=== PATIENT | male | born 1980 | race Caucasian/White ===

== ENCOUNTER 2022-04-02 21:18 | Day surgery (SDC) | payer OTHER, SELFPAY ==
[2022-04-02 21:20] VITALS: BP 135/85; PULSE 70; RESP 18; TEMP 36.6; O2SAT 98; BMI 23.7
--- NOTE | 2022-04-02 21:43 | PC.NURSE ---
spoke with regarding food bolus. requested surgery team be notified. HOuse contacted.
--- NOTE | 2022-04-02 21:47 | PC.NURSE ---
Surgery team called in at request. Call back from Radha at [phone] Call back from Mick at [phone]
--- NOTE | 2022-04-02 21:49 | ED_ITS ---
Discharge Plan Disposition Patient Disposition: Still a Patient Condition: Good Chief Complaint: Skin/Abscess/Foreign Body Referrals Follow up/Referrals: Provider,Referral, MD [Primary Care Provider] - See instructions Clinical Impressions Clinical Impression: Acute esophageal obstruction Instructions Patient Instructions: DI for Skin Abscess Discharge ED Provider: Ranjan Roy General Adult HPI General Chief complaint: Skin/Abscess/Foreign Body Stated complaint: f/b lodged in throat Time Seen by Provider: 04/02/22 21:35 Mode of Arrival: Ambulatory Source of Information: Patient Limitations: No Limitations Description of Symptoms (Recalled from ER Triage Doc. by RN): Pt states he was eating steak at 1200 today and a piece got lodged and he is unable to drink water. History of Present Illness HPI narrative: 41yo M presents to the emergency department secondary to lodged food bolus. He was eating steak at noon when he felt his food become stuck in his throat. No previous episode similar. Does not smoke. Intolerant to p.o. liquids. PFSH PFSH Social History Smoking Status: Never smoker alcohol intake: never current occupational status: employed Travel in the last 8 weeks: None ROS Obtained: Yes Systems reviewed as appropriate & no additional complaints exc ept as documented 10 point ROS negative except as above Physical Exam General General appearance: alert and in no apparent distress Head Head exam: atraumatic Eye Eye exam: Present normal appearance Neck Neck exam: Present normal inspection, full ROM and trachea midline Chest Chest inspection: Present normal inspection and symmetric chest wall rise Respiratory Respiratory exam: Present normal lung sounds bilaterally and respiratory distress Cardiovascular Cardiovascular exam: Present regular rate and normal rhythm Abdominal Exam Abdominal exam: Present soft; Absent distention, tenderness or guarding Extremities Exam Extremities exam: Present normal inspection Neurological Exam Neurological exam: Present alert, oriented X3 and CN II-XII intact Psychiatric Psychiatric exam: Present normal affect Skin Skin exam: Present warm, dry and intact Medical Decision Making Ryan Inquiry Pt receiving controlled substance: No Vital Signs: 04/02/22 21:20 Temperature 98 F Temperature Source Oral Pulse Rate [Apical] 70 Respiratory Rate 18 Blood Pressure [Right Arm] 135/85 Blood Pressure Mean [Right Arm] 101 Blood Pressure Source [Right Arm] Automatic Cuff Blood Pressure Position [Right Arm] Sitting 02 Sat by Pulse Oximetry 98 Oxygen Delivery Method Room Air Medical Decision Narrative: Evaluated for lodged food bolus. Patient is in no acute distress. Discomfort with attempting to drink water. Surgeon on-call paged and agrees to proceed to the OR for EGD Critical Care Time Critical Care Time Critical Care Time: Yes Total Critical Care Time: 35 Attestation: On 04/02/22, the high probability of a clinically significant, sudden or life threatening deterioration of the following system(s) required my full and direct attention, intervention and personal management. The time I documented below is in addition to time spent performing reported procedures but includes the following listed in this critical care notation.
--- NOTE | 2022-04-02 22:02 | PC.NURSE ---
Dr. Sibley at BS
[2022-04-02 22:39] VITALS: BP 142/78; PULSE 88; RESP 18; TEMP 36.6; O2SAT 99
[2022-04-02 22:50] VITALS: BP 120/56; PULSE 71; RESP 16; TEMP 36.6; O2SAT 99
--- NOTE | 2022-04-02 22:51 | P.PN_ITS ---
[facility] Social History (Updated 04/02/22 @ 21:54 by Ranjan Roy DO) Smoking Status: Never smoker alcohol intake: never substance use type: denies use current occupational status: employed Travel in the last 8 weeks: None [facility] Anesthesia Checklist Patient Identification Patient Identification: Verbal (Name & ) Structural Data Admitted From: Emergency Dept Planned Operative Procedure/s: egd Consent for Planned Operative Procedure(s) Verified: Yes Airway Assessment C-Spine Mobility Assessed: Yes TMJ Mobility Assessed: Yes Dentition: Good Dentition Neurological Assessment Level of Consciousness: Awake, Alert and Appropriate Anesthesia Plan Anesthesia Risk discussed: Yes Anesthesia Plan: Verified ASA Class: II Anesthesia Type: MAC
--- NOTE | 2022-04-02 22:57 | [facility].SCOPE ---
Procedure: Date: 04/02/22 Patient Date of :: 1980 Procedure Performed:: Esophagogastroscopy with foreign body removal Indications:: Esophageal foreign body Performing Provider:: Jamie Sibley MD Referring Provider:: Emergency department Sedation:: Monitored anesthesia care Procedure:: After informed consent was obtained the patient was taken to the endoscopy suite. Sedation ensued after the patient was transferred to the left lateral decubitus position. Pulse, blood pressure, and oxygen saturation were monitored throughout the procedure. The endoscope was advanced to the distal esophagus where a large complex foreign body consistent with ingested food particles was noted. Utilizing 3 separate passes the foreign body was removed by way of retrieval net. The gastroscope was advanced beyond the gastroesophageal junction. Retroflexion within the gastric lumen was accomplished. The gastroscope was carefully removed and the patient was transferred to recovery in stable condition. Please see findings and specimens below for detail. Findings:: Foreign body consistent with ingested food particles were removed in a retrograde fashion Specimens:: None for pathology Recommendations:: Proton pump inhibition Clear liquid diet for 24 hours followed by full liquid diet for 24 hours followed by soft diet Complications:: No immediate Estimated blood obtained (mL): 0
[2022-04-02 23:05] VITALS: BP 131/70; PULSE 66; RESP 16; TEMP 37; O2SAT 98
[2022-04-02 23:20] VITALS: BP 122/82; PULSE 71; RESP 18; TEMP 37.1; O2SAT 98
== END 2022-04-02 23:20 | disposition home or self-care (01) ==
LOC: SDC 22:42 → ER 22:42
PROVIDERS: Emergency Provider Family Medicine; Visit Provider Surgery
PROC: 0DJ08ZZ Inspection of Upper Intestinal Tract, Via Natural or Artificial Opening Endoscopic (ICD-10-PCS; CPT 43235; principal; 2022-04-02 22:00)
DX: K22.2 Esophageal obstruction (principal); T18.128A Food in esophagus causing other injury, initial encounter
CPT/HCPCS: 43247